=== PATIENT | female | born 1935 | race Caucasian/White ===

== ENCOUNTER 2017-08-09 12:48 | Inpatient (IN) | payer MEDICARE, BC ==
[2017-08-09] MEDS ORDERED: AMPICILLIN/SULBACTAM 3 GM PDS 3 GM in SODIUM CHLORIDE 0.9% 100 ML 100 ML IV SCH (13:00)
[2017-08-09] MEDS ORDERED: AMPICILLIN/SULBACTAM 3 GM PDS ONE ×2 (14:03→22:00)
[2017-08-09] MEDS ORDERED: SODIUM CHLORIDE 0.9% 100 ML 100 ML IV ONE ×2 (14:03→22:00)
[2017-08-09 14:06] LABS: BASOPHILS % (AUTO) 1 % (0-3); EOSINOPHILS % (AUTO) 2 % (0-9); HEMATOCRIT 39 % (35-47); MEAN CORPUSCULAR HGB CONC 33.1 gm/dl (32.0-36.0); MEAN CORPUSCULAR VOLUME 94 fL (81-99); MONOCYTES % (AUTO) 8.4 % (0-12); NEUTROPHILS % (AUTO) 71.6 % (37-80)
[2017-08-09] MEDS: SODIUM CHLORIDE 0.9% FLUSH 10 ML SOL IV SCH ×2 (14:08→20:48)
[2017-08-09 15:07] LABS: POTASSIUM 3.7 mMol/L (3.5-5.1)
[2017-08-09] MEDS ORDERED: WARFARIN SODIUM 5 MG PO SCH (16:30)
[2017-08-09 17:52] LABS: CALCIUM 9.6 mg/dl (8.5-10.1)
[2017-08-09] MEDS: ACETAMINOPHEN 325 MG PO PRN (19:31)
[2017-08-09] MEDS: METOPROLOL SUCCINATE 50 MG ER TAB PO SCH (20:48)
[2017-08-10] MEDS: AMPICILLIN/SULBACTAM 3 GM PDS 3 GM in SODIUM CHLORIDE 0.9% 100 ML 100 ML IV SCH ×2 (01:23→13:28)
[2017-08-10] MEDS: SODIUM CHLORIDE 0.9% FLUSH 10 ML SOL IV SCH ×5 (01:23→20:25)
[2017-08-10] MEDS: POTASSIUM CHLORIDE 10 MEQ TER PO SCH (08:07)
[2017-08-10] MEDS: LEVETIRACETAM 250 MG TAB PO SCH (08:07)
[2017-08-10] MEDS: PANTOPRAZOLE SODIUM 40 MG ECT PO SCH (08:08)
[2017-08-10] MEDS: FUROSEMIDE 80 MG TAB PO SCH (08:08)
[2017-08-10] MEDS: ALLOPURINOL 100 MG TAB PO SCH (08:08)
[2017-08-10] MEDS: ACETAMINOPHEN 325 MG PO PRN (08:09)
[2017-08-10] MEDS ORDERED: METOPROLOL TARTRATE 50 MG PO SCH (09:00)
[2017-08-10] MEDS ORDERED: FUROSEMIDE 80 MG PO SCH (09:00)
[2017-08-10] MEDS ORDERED: AMPICILLIN/SULBACTAM 3 GM PDS ONE (11:25)
[2017-08-10] MEDS ORDERED: SODIUM CHLORIDE 0.9% 100 ML 100 ML IV ONE (11:25)
[2017-08-10] MEDS: ACETAMINOPHEN 500 MG 500 MG TAB PO PRN ×2 (12:10→22:10)
[2017-08-10] MEDS: FUROSEMIDE 40 MG TAB PO SCH (13:28)
[2017-08-10] MEDS ORDERED: ENOXAPARIN 30 MG SOL SC SCH (15:00)
[2017-08-10] MEDS ORDERED: WARFARIN SODIUM 2.5 MG TAB PO SCH (18:15)
[2017-08-10] MEDS ORDERED: WARFARIN SODIUM 5 MG TAB PO SCH (18:15)
[2017-08-10] MEDS: METOPROLOL SUCCINATE 50 MG ER TAB PO SCH (20:25)
[2017-08-11] MEDS ORDERED: SODIUM CHLORIDE 0.9% 100 ML 100 ML IV ONE ×2 (01:27→13:41)
[2017-08-11] MEDS ORDERED: AMPICILLIN/SULBACTAM 3 GM PDS ONE ×2 (01:27→13:40)
[2017-08-11] MEDS: AMPICILLIN/SULBACTAM 3 GM PDS 3 GM in SODIUM CHLORIDE 0.9% 100 ML 100 ML IV SCH ×2 (01:53→13:48)
[2017-08-11] MEDS: SODIUM CHLORIDE 0.9% FLUSH 10 ML SOL IV SCH ×4 (01:54→21:01)
[2017-08-11 07:04] LABS: CALCIUM 8.9 mg/dl (8.5-10.1); POTASSIUM 3.5 mMol/L (3.5-5.1)
[2017-08-11 07:12] LABS: BASOPHILS % (AUTO) 1 % (0-3); EOSINOPHILS % (AUTO) 3 % (0-9); HEMATOCRIT 35 % (35-47); MEAN CORPUSCULAR HGB CONC 32.7 gm/dl (32.0-36.0); MEAN CORPUSCULAR VOLUME 95 fL (81-99); MONOCYTES % (AUTO) 11.5 % (0-12); NEUTROPHILS % (AUTO) 67.9 % (37-80)
[2017-08-11] MEDS: PANTOPRAZOLE SODIUM 40 MG ECT PO SCH (08:46)
[2017-08-11] MEDS: ALLOPURINOL 100 MG TAB PO SCH (08:46)
[2017-08-11] MEDS: LEVETIRACETAM 250 MG TAB PO SCH (08:47)
[2017-08-11] MEDS: FUROSEMIDE 80 MG TAB PO SCH (08:47)
[2017-08-11] MEDS: POTASSIUM CHLORIDE 10 MEQ TER PO SCH (08:48)
[2017-08-11] MEDS: ACETAMINOPHEN 500 MG 500 MG TAB PO PRN ×2 (10:36→21:01)
[2017-08-11] MEDS: FUROSEMIDE 40 MG TAB PO SCH (13:47)
[2017-08-11] MEDS: METOPROLOL SUCCINATE 50 MG ER TAB PO SCH (21:01)
[2017-08-12] MEDS ORDERED: AMPICILLIN/SULBACTAM 3 GM PDS ONE (01:04)
[2017-08-12] MEDS ORDERED: SODIUM CHLORIDE 0.9% 100 ML 100 ML IV ONE (01:04)
[2017-08-12] MEDS: AMPICILLIN/SULBACTAM 3 GM PDS 3 GM in SODIUM CHLORIDE 0.9% 100 ML 100 ML IV SCH (01:57)
[2017-08-12] MEDS: SODIUM CHLORIDE 0.9% FLUSH 10 ML SOL IV SCH ×2 (01:57→04:13)
[2017-08-12 08:40] VITALS: BP 137/78; PULSE 75; RESP 18; TEMP 98.1; O2SAT 95
[2017-08-12] MEDS: FUROSEMIDE 80 MG TAB PO SCH (08:49)
[2017-08-12] MEDS: ALLOPURINOL 100 MG TAB PO SCH (08:49)
[2017-08-12] MEDS: POTASSIUM CHLORIDE 10 MEQ TER PO SCH (08:49)
[2017-08-12] MEDS: PANTOPRAZOLE SODIUM 40 MG ECT PO SCH (08:49)
[2017-08-12] MEDS: LEVETIRACETAM 250 MG TAB PO SCH (08:50)
[2017-08-12] MEDS ORDERED: WARFARIN SODIUM 2.5 MG TAB PO SCH (18:00)
== END 2017-08-12 10:20 | disposition home or self-care (01) | DRG 603 ==
LOC: ACUTE CARE 12:56
PROVIDERS: ADMIT Family Medicine; ATTEND Family Medicine
PROC: F01ZDFZ Gait and/or Balance Assessment using Assistive, Adaptive, Supportive or Protective Equipment (ICD-10-PCS; principal; 2017-08-11)
PROC: F01ZBZZ Bed Mobility Assessment (ICD-10-PCS; 2017-08-11)
PROC: F01ZCZZ Transfer Assessment (ICD-10-PCS; 2017-08-11)
DX: L03.115 Cellulitis of right lower limb (principal); I48.2 Chronic atrial fibrillation; I10 Essential (primary) hypertension; Z79.01 Long term (current) use of anticoagulants
CPT/HCPCS: 36415; 73630; 73700; 80048; 82962; 85025; 85610; 87040; J0295; J1650

== ENCOUNTER 2018-10-02 19:18 | Inpatient (IN) | payer MEDICARE, BC ==
[2018-10-02] MEDS ORDERED: ONDANSETRON HCL 4 MG/2 ML SOL IV ONE ×2 (19:45→21:56)
[2018-10-02] MEDS ORDERED: SODIUM CHLORIDE 0.9% 1000ML 1,000 ML IV SCH (19:45)
[2018-10-02] MEDS ORDERED: ONDANSETRON HCL 4 MG/2 ML SOL ONE (19:49)
[2018-10-02 20:04] LABS: HEMATOCRIT 44 % (35-47); HEMOGLOBIN 13.3 gm/dl (12.0-15.5); MEAN CORPUSCULAR HEMOGLOBIN 29.7 pg (27.0-32.0); MEAN CORPUSCULAR HGB CONC 30.5 gm/dl (32.0-36.0); MEAN CORPUSCULAR VOLUME 98 fL (81-99)
[2018-10-02 20:15] LABS: ALBUMIN 3.6 gm/dl (3.4-5.0); BILIRUBIN,TOTAL 1.7 mg/dl (0.2-1.0); CALCIUM 9.4 mg/dl (8.5-10.1); CARBON DIOXIDE 24.3 mEq/L (21-32); CREATININE 1.79 mg/dl (0.60-1.00); TOTAL PROTEIN 7.8 gm/dl (6.4-8.2)
[2018-10-02 20:23] LABS: POTASSIUM 2.9 mMol/L (3.5-5.1)
[2018-10-02 20:35] LABS: LACTIC ACID 1.9 mMol/L (0.0-2.0)
[2018-10-02] MEDS ORDERED: POTASSIUM CHLORIDE 2 MEQ/ML 60 MEQ, LIDOCAINE HCL 1% MDV 2 ML in SODIUM CHLORIDE 0.9% 1... IV ONE (20:50)
[2018-10-02 21:26] LABS: APPEARANCE,URINE Slightly Cloudy; BILIRUBIN,URINE NEGATIVE (NEGATIVE); COLOR,URINE Yellow; GLUCOSE, URINE (UA) NEGATIVE (NEGATIVE); KETONES,URINE NEGATIVE (NEGATIVE); LEUKOCYTE ESTERASE ,URINE 1+ (NEGATIVE); NITRATE,URINE NEGATIVE (NEGATIVE); OCCULT BLOOD,URINE 1+ (NEG-TRACE); UROBILINOGEN,URINE 0.2 (0.2-1.0 EU)
[2018-10-02 21:35] LABS: RBC,URINE 0-3 (0-3AV/HPF)
[2018-10-02 21:36] LABS: BACTERIA 1+ (< 1+); CRYSTALS NEGATIVE (0-3 AVE/HPF); WBC,URINE 20-23 (0-5AV/HPF)
[2018-10-02] MEDS ORDERED: SODIUM CHLORIDE 0.9% 100 ML 100 ML IV ONE (21:46)
[2018-10-02] MEDS ORDERED: PIPERACILLIN/TAZOBACT 3.375 GM PDS IV ONE (21:46)
[2018-10-02 21:47] LABS: BAND NEUTROPHILS % (MANUAL) 4 %; NEUTROPHILS % (MANUAL) 88 % (37-80)
[2018-10-02 21:48] LABS: BASOPHILS % (MANUAL) 1 % (0-3); EOSINOPHILS % (MANUAL) 0 % (0-9); LYMPHOCYTES % (MANUAL) 3 % (10-50); MONOCYTES % (MANUAL) 4 % (0-12); NORMAL RBCS PRESENT
[2018-10-02] MEDS: PIPERACILLIN/TAZOBACT 3.375 GM 3.375 GM in SODIUM CHLORIDE 0.9% 100 ML 100 ML IV SCH (21:58)
[2018-10-02] MEDS ORDERED: LIDOCAINE HCL 1% MPF 30 SOL ONE (22:27)
[2018-10-02] MEDS ORDERED: POTASSIUM CHLORIDE 2 MEQ/ML SOL IV ONE (22:27)
[2018-10-02] MEDS ORDERED: WARFARIN SODIUM 5 MG TAB PO SCH (22:30)
[2018-10-02] MEDS: ACETAMINOPHEN 500 MG 500 MG TAB PO SCH (23:23)
[2018-10-02] MEDS: METOPROLOL TARTRATE 50 MG TAB PO SCH (23:23)
[2018-10-02 23:29] VITALS: RESP 16
[2018-10-03] MEDS ORDERED: PIPERACILLIN/TAZOBACT 3.375 GM PDS IV ONE ×4 (03:48→22:11)
[2018-10-03] MEDS ORDERED: SODIUM CHLORIDE 0.9% 100 ML 100 ML IV ONE ×4 (03:48→22:11)
[2018-10-03] MEDS ORDERED: DEXTROSE/SALINE 0.45/KCL 20MEQ 1,000 ML/1,000 ML SOL IV SCH (04:00)
[2018-10-03] MEDS: PIPERACILLIN/TAZOBACT 3.375 GM 3.375 GM in SODIUM CHLORIDE 0.9% 100 ML 100 ML IV SCH ×4 (04:57→22:23)
[2018-10-03 07:21] LABS: HEMATOCRIT 39 % (35-47); MEAN CORPUSCULAR HEMOGLOBIN 30.1 pg (27.0-32.0); MEAN CORPUSCULAR HGB CONC 31.1 gm/dl (32.0-36.0); MEAN CORPUSCULAR VOLUME 97 fL (81-99)
[2018-10-03 07:24] LABS: CARBON DIOXIDE 26.4 mEq/L (21-32); CREATININE 1.83 mg/dl (0.60-1.00); POTASSIUM 4.1 mMol/L (3.5-5.1)
[2018-10-03 07:28] LABS: INR 2.03 (0.86-1.12)
[2018-10-03 08:06] LABS: BAND NEUTROPHILS % (MANUAL) 7 %; BASOPHILS % (MANUAL) 0 % (0-3); EOSINOPHILS % (MANUAL) 0 % (0-9); LYMPHOCYTES % (MANUAL) 7 % (10-50); MONOCYTES % (MANUAL) 4 % (0-12); NEUTROPHILS % (MANUAL) 82 % (37-80); NORMAL RBCS PRESENT
[2018-10-03] MEDS ORDERED: FUROSEMIDE 40 MG TAB PO SCH (09:00)
[2018-10-03] MEDS ORDERED: FISH OIL PO SCH (09:00)
[2018-10-03] MEDS ORDERED: [UNRECOGNIZED DRUG - OTHER] PO SCH (09:00)
[2018-10-03] MEDS ORDERED: DHA PO SCH (09:00)
[2018-10-03] MEDS ORDERED: PANTOPRAZOLE SODIUM 40 MG ECT PO SCH (09:00)
[2018-10-03] MEDS ORDERED: OMEGA PO SCH (09:00)
[2018-10-03] MEDS ORDERED: EPA PO SCH (09:00)
[2018-10-03] MEDS ORDERED: PEG-400/PROPYLENE GLYCOL 1 DROP SOL OP PRN (09:45)
[2018-10-03] MEDS: FUROSEMIDE 80 MG TAB PO SCH (09:51)
[2018-10-03] MEDS: POTASSIUM CHLORIDE 10 MEQ TER PO SCH (09:59)
[2018-10-03] MEDS: ACETAMINOPHEN 500 MG 500 MG TAB PO SCH ×2 (10:00→21:16)
[2018-10-03] MEDS: CHOLECALCIFEROL 1,000 IU TAB PO SCH (10:00)
[2018-10-03] MEDS ORDERED: FUROSEMIDE 40 MG TAB PO ONE (10:00)
[2018-10-03] MEDS: ALLOPURINOL 100 MG TAB PO SCH (10:00)
[2018-10-03] MEDS: LEVETIRACETAM 250 MG TAB PO SCH (10:00)
[2018-10-03] MEDS: PANTOPRAZOLE SODIUM 40 MG ECT PO SCH (10:01)
[2018-10-03] MEDS: METOPROLOL SUCCINATE 50 MG ER TAB PO SCH (10:04)
[2018-10-03] MEDS: [UNRECOGNIZED DRUG - OTHER] EACHEYE SCH ×2 (10:09→21:16)
[2018-10-03] MEDS: METOPROLOL TARTRATE 50 MG TAB PO SCH (15:05)
[2018-10-03] MEDS ORDERED: WARFARIN SODIUM 2.5 MG TAB PO SCH (18:00)
[2018-10-03] MEDS ORDERED: METOPROLOL SUCCINATE 50 MG ER TAB PO SCH (21:00)
[2018-10-04] MEDS ORDERED: SODIUM CHLORIDE 0.9% 100 ML 100 ML IV ONE (03:53)
[2018-10-04] MEDS ORDERED: PIPERACILLIN/TAZOBACT 3.375 GM PDS IV ONE (03:53)
[2018-10-04] MEDS: PIPERACILLIN/TAZOBACT 3.375 GM 3.375 GM in SODIUM CHLORIDE 0.9% 100 ML 100 ML IV SCH ×2 (04:00→10:39)
[2018-10-04 07:23] LABS: BASOPHILS % (AUTO) 1 % (0-3); EOSINOPHILS % (AUTO) 2 % (0-9); HEMATOCRIT 36 % (35-47); HEMOGLOBIN 11.5 gm/dl (12.0-15.5); LYMPHOCYTES % (AUTO) 11.8 % (10-50); MEAN CORPUSCULAR HEMOGLOBIN 30.4 pg (27.0-32.0); MEAN CORPUSCULAR HGB CONC 31.7 gm/dl (32.0-36.0); MEAN CORPUSCULAR VOLUME 96 fL (81-99); MONOCYTES % (AUTO) 8.3 % (0-12); NEUTROPHILS % (AUTO) 77.7 % (37-80)
[2018-10-04 07:24] LABS: CALCIUM 8.7 mg/dl (8.5-10.1); CREATININE 2.05 mg/dl (0.60-1.00); POTASSIUM 3.6 mMol/L (3.5-5.1)
[2018-10-04 08:47] VITALS: BP 134/85; PULSE 71; TEMP 97.5; O2SAT 96
[2018-10-04] MEDS: LEVETIRACETAM 250 MG TAB PO SCH (08:56)
[2018-10-04] MEDS: POTASSIUM CHLORIDE 10 MEQ TER PO SCH (08:57)
[2018-10-04] MEDS: FUROSEMIDE 80 MG TAB PO SCH (08:57)
[2018-10-04] MEDS: ACETAMINOPHEN 500 MG 500 MG TAB PO SCH (08:58)
[2018-10-04] MEDS: PANTOPRAZOLE SODIUM 40 MG ECT PO SCH (08:58)
[2018-10-04] MEDS: CHOLECALCIFEROL 1,000 IU TAB PO SCH (08:59)
[2018-10-04] MEDS: METOPROLOL SUCCINATE 50 MG ER TAB PO SCH (09:00)
[2018-10-04] MEDS: ALLOPURINOL 100 MG TAB PO SCH (09:01)
[2018-10-04] MEDS: [UNRECOGNIZED DRUG - OTHER] EACHEYE SCH (10:40)
== END 2018-10-04 10:35 | disposition home or self-care (01) | DRG 690 ==
LOC: ED 19:18 → ACUTE CARE 21:21
PROVIDERS: ADMIT Family Medicine; ATTEND Family Medicine
DX: N39.0 Urinary tract infection, site not specified (principal); E87.6 Hypokalemia; R11.10 Vomiting, unspecified; R53.1 Weakness; Z79.01 Long term (current) use of anticoagulants
CPT/HCPCS: 36415; 71046; 74019; 80048; 80053; 81001; 82150; 85007; 85025; 85027; 85610; 87040; 87088; 93005; 93012; 96365; 96374; 99070; 99221; 99231; 99284; J2405; J2543; J3480; A9270; A9270-GY; J2001